=== PATIENT | male | born 1990 | race Caucasian/White ===

== ENCOUNTER 2022-11-09 16:05 | Emergency (ER) | payer MEDICAID, SELFPAY ==
[2022-11-09 16:10] VITALS: BP 126/89; PULSE 99; RESP 18; TEMP 36.6; O2SAT 99; BMI 38.0
--- NOTE | 2022-11-09 16:36 | CRLHL7_ITS ---
For Patients: As a result of the Century Cures Act, medical imaging exams and procedure reports are released immediately into your electronic medical record. You may view this report before your referring provider. If you have questions, please contact your health care provider. INDICATION: Right upper quadrant abdomen pain. TECHNIQUE: Ultrasound abdomen limited. Sonographic images of the right upper quadrant were obtained using rhoades-scale and color Doppler images. COMPARISON: None. FINDINGS: Liver: Normal in size and echotexture. No intrahepatic biliary dilatation. Gallbladder: Cholelithiasis in an otherwise normal gallbladder pre normal wall thickness. No pericholecystic fluid. Common bile duct: Four mm. Pancreas: Unremarkable where imaged. Right kidney: Normal in size. Normal echotexture and cortex. No shadowing stones, or hydronephrosis. Vasculature: Proximal abdominal aorta and IVC are unremarkable. IMPRESSION: Cholelithiasis in an otherwise normal gallbladder. Dictated by Domenic Dubose MD @ 11/09/2022 6:15:36 PM (Electronically Signed)
--- NOTE | 2022-11-09 16:40 | ED_ITS ---
HPI - Abdominal Pain General Time Seen by Provider: 16:40 Date Seen: 11/09/22 Chief Complaint: Abdominal Pain Stated Complaint: Gallstone Time Seen by Provider: 11/09/22 16:35 Source: patient Mode of arrival: ambulatory Limitations: no limitations History of Present Illness HPI narrative: Patient is a 32-year-old male with no pertinent medical problems [facility] for concern for cholelithiasis. Patient states 2 days ago he was on a cruise when after he ate a spicy in fatty meal he developed severe right upper quadrant abdominal pain that radiated across his abdomen. Patient went to see the on board provider and he states they did an ultrasound which showed concerns for cholelithiasis. He states he was told to come to the emergency department when he finished a cruise to get a CT scan to better evaluate the gallbladder. Patient states since then the pain has been improving but he still can feel it. He is only being small amounts of non spicy non fatty foods but states particular plenty of fluids without issue. Does state he has had somewhat similar symptoms 3 or 4 months ago but only last for 2 hours then went away. He has no other previous history of abdominal issues. No previous abdominal surgeries. Denies nausea, vomiting, lightheadedness, dizziness, diarrhea, constipation, dysuria. Related Data Home Medications Medication Instructions Recorded Confirmed amlodipine 10 mg tablet 10 mg PO DAILY 11/09/22 11/09/22 dextroamphetamine-amphetamine 10 1 tab PO DAILY 11/09/22 11/09/22 mg tablet dextroamphetamine-amphetamine ER 1 cap PO DAILY 11/09/22 11/09/22 30 mg 24hr capsule,extend release (Adderall XR) Allergies Allergy/AdvReac Type Severity Reaction Status Date / Time bee pollen Allergy Mild Localized Verified 11/09/22 16:19 Swelling Review of Systems Status of ROS Reports: 10 or more systems reviewed and unremarkable except as noted in History and below PFSH PFSH Social History Smoking Status: Former smoker Do you use any of these nicotine containing products: None Second hand tobacco smoke exposure: No How often do you have a drink containing alcohol: never AUDIT-C Alcohol total score: 0 Non-prescribed substance use: denies use service: No Exam Narrative: Exam Narrative: Const: Well-nourished, Well-developed, in mild distress Eyes: PERRL, no conjunctival injection, and symmetrical lids ENMT: Atraumatic external nose and ears. Moist mucous membranes. Neck: Symmetric, trachea midline, No thyromegaly. CVS: RRR, No murmurs or gallops. Peripheral pulses 2+ and equal in all extremities RESP: Unlabored respiratory effort. Clear to auscultation bilaterally. GI: Nontender/Nondistended, No rebound or guarding. MSK:Extremities w/o deformity, Normal Active ROM Skin: Warm, Dry. No rashes or lesions. Neuro: Normal Muscle tone, No focal neurological deficits. Psych: Awake, Alert, & Oriented x3. Appropriate mood and affect. Const: Vital Signs, click to edit/add: Vital Signs - 24 hr 11/09/22 16:10 11/09/22 19:05 11/09/22 19:06 Temperature 97.8 F 98.1 F 98.1 F Pulse Rate [Pulse Oximeter] 99 66 66 Respiratory Rate 18 18 18 Blood Pressure [Ri ght Upper Arm] 126/89 129/84 129/84 Pulse Oximetry 99 98 Oxygen Delivery Me thod Room Air Room Air Course Vital Signs Vital signs: Initial Vital Signs Temperature 97.8 F 11/09/22 16:10 Temperature Source Temporal Artery Scan 11/09/22 16:10 Pulse Rate 99 11/09/22 16:10 Respiratory Rate 18 11/09/22 16:10 Blood Pressure 126/89 11/09/22 16:10 Blood Pressure Mean 101 11/09/22 16:10 Blood Pressure Position Sitting 11/09/22 16:10 Pulse Oximetry 99 11/09/22 16:10 Oxygen Delivery Method Room Air 11/09/22 16:10 Vital Signs Temperature 97.8 F 11/09/22 16:10 Pulse Rate 99 11/09/22 16:10 Respiratory Rate 18 11/09/22 16:10 Blood Pressure 126/89 11/09/22 16:10 Pulse Oximetry 99 11/09/22 16:10 Oxygen Delivery Method Room Air 11/09/22 16:10 Temperature 98.1 F 11/09/22 19:06 Pulse Rate 66 11/09/22 19:06 Respiratory Rate 18 11/09/22 19:06 Blood Pressure 129/84 11/09/22 19:06 Pulse Oximetry 98 11/09/22 19:06 Oxygen Delivery Method Room Air 11/09/22 19:06 MDM - Abdominal Pain MDM Narrative Medical decision making narrative: Patient is a 32 year male presented to [place] for abdominal pain. Pain started 2 days ago while he a spicy and fatty be on a cruise ship. He had a point of care ultrasound done by the envelope provider was told he has gallstones. He was informed follow-up with a possible CT scan in the emergency department when he arrived back from his cruise. He was given antibiotics the past 2 days but is not currently taking any further antibiotics. The pain has improved he states he has only been eating small amounts of non-fatty in non spicy foods because of the possible gallbladder issue. No previous abdominal surgeries. CBC, CMP, lipase were all ordered on this patient he is not having any dysuria and up leaving urinalysis is necessary. Go to right upper quadrant ultrasound. Since the symptoms are likely gallbladder related adenopathy was necessary for him to get a CT scan at this time. Patient is having returned showing no concerning abnormalities. His potassium is only mildly low at 3.4 but his liver enzymes are within normal limits. Unlikely to be primary liver cause of his symptoms. Lipase is within normal limits and unlikely to be pancreatitis. Kidney function within normal limits. No clear signs of infection at this time. Ultrasound returns showing the previously seen cholelithiasis but no signs of cholecystitis or other gallbladder or liver disease. He is otherwise doing well at this time. Will discharge him home with information to follow up with surgery. Informed to stay away from fatty and spicy foods. He is agreeable to this plan. Lab Data Labs: Lab Results 11/09/22 Range/Units 17:02 WBC 8.52 (4.50-11.00) K/uL RBC 5.42 (4.30-5.90) m/uL Hgb 16.0 (13.5-17.5) gm/dL Hct 47.5 (37.0-53.0) % MCV 88 (80-100) fL MCH 30 (26-34) pg MCHC 34 (32-36) gm/dL RDW Coeff of Chandler 12.6 (11.5-15.5) % Plt Count 233 (140-440) K/uL Neut % (Auto) 63.6 (42.0-72.0) % Lymph % (Auto) 22.5 (20-44) % [place] % (Auto) 9.5 (0.0-11.0) % Eos % (Auto) 3.2 (0.0-7.0) % Baso % (Auto) 0.5 (0.0-3.0) % Neut # (Auto) 5.42 (1.7-7.0) K/uL Lymph # (Auto) 1.92 (0.90-2.90) K/uL [place] # (Auto) 0.80 (0.00-0.90) K/UL Eos # (Auto) 0.27 (0.00-0.50) K/uL Baso # (Auto) 0.04 (0.00-0.30) K/uL Abs Immat Gran (auto) 0.06 (0.00-0.30) K/uL Imm/Tot Granulo (auto) 0.7 % Sodium 137 (135-149) mmol/L Potassium 3.4 L (3.6-5.1) mmol/L Chloride 101 (96-114) mmol/L Carbon Dioxide 27 (20-32) mmol/L Anion Gap 9 (7-15) mEq/L BUN 11 (5-24) mg/dL Creatinine 0.8 (0.5-1.5) mg/dL Estimated Creat Clear 127.06 Estimated GFR 120 ml/min Glucose 94 (60-115) mg/dL Total Bilirubin 1.0 (0.1-1.5) mg/dL AST 26 (12-35) U/L ALT 41 (4-50) U/L Alkaline Phosphatase 53 (40-150) U/L Total Protein 8.0 (6.0-8.3) g/dL Albumin 4.7 (3.3-5.0) g/dL Lipase 87 (23-300) U/L Discharge Plan Discharge Clinical Impression: Cholelithiasis Qualifiers: Cholelithiasis location: gallbladder Cholecystitis presence: without cholecystitis Biliary obstruction: without biliary obstruction Qualified Code(s): K80.20 - Calculus of gallbladder without cholecystitis without ob struction Patient Disposition: Home, Self-Care Condition: Stable Instructions: Gallstones (ED) Additional Instructions: Take ibuprofen for pain. Stay away from fatty and spicy foods. Those type of food will make your symptoms worse. Follow-up with 1 of the available general surgeon of the [facility]. Their contact information has been provided. Return for new or worsening symptoms. Prescriptions: No Action dextroamphetamine-amphetamine 10 mg tablet 1 tab PO DAILY amlodipine 10 mg tablet 10 mg PO DAILY dextroamphetamine-amphetamine [Adderall XR] 30 mg capsule,extended release 24hr 1 cap PO DAILY Follow Up/Referrals: Provider,Not a Local [Referring] - Stand Alone Forms: [employer] Info Instructions
[2022-11-09 17:09] LABS: Basophils Absolute Auto 0.04 K/uL (0.00-0.30); Basophils Percent Auto 0.5 % (0.0-3.0); Eosinophils Absolute Auto 0.27 K/uL (0.00-0.50); Eosinophils Percent Auto 3.2 % (0.0-7.0); Hematocrit 47.5 % (37.0-53.0); Immature Granulocytes Abs Auto 0.06 K/uL (0.00-0.30); Immature Granulocytes Pct Auto 0.7 %; Lymphocytes Absolute Auto 1.92 K/uL (0.90-2.90); Lymphocytes Percent Auto 22.5 % (20-44); Mean Corpuscular HGB Conc 34 gm/dL (32-36); Mean Corpuscular Hemoglobin 30 pg (26-34); Mean Corpuscular Volume 88 fL (80-100); Monocytes Percent Auto 9.5 % (0.0-11.0); Neutrophils Absolute Auto 5.42 K/uL (1.7-7.0); Neutrophils Percent Auto 63.6 % (42.0-72.0); Platelet Count* 233 K/uL (140-440); RDW Coefficient of Variation % 12.6 % (11.5-15.5); Red Blood Count 5.42 m/uL (4.30-5.90); White Blood Count* 8.52 K/uL (4.50-11.00)
[2022-11-09 17:21] LABS: Albumin* 4.7 g/dL (3.3-5.0)
[2022-11-09 17:22] LABS: Chloride* 101 mmol/L (96-114); Potassium* 3.4 mmol/L (3.6-5.1); Sodium* 137 mmol/L (135-149)
[2022-11-09 17:24] LABS: Anion Gap 9 mEq/L (7-15); Aspartate Amino Transferase* 26 U/L (12-35); Carbon Dioxide* 27 mmol/L (20-32); Creatinine* 0.8 mg/dL (0.5-1.5); Est. Creatinine Clearance* 127.06; Estimated Glomerular Filt Rate 120 ml/min
[2022-11-09 17:25] LABS: Alanine Aminotransferase* 41 U/L (4-50); Alkaline Phosphatase* 53 U/L (40-150); Blood Urea Nitrogen* 11 mg/dL (5-24); Glucose* 94 mg/dL (60-115); Lipase* 87 U/L (23-300)
[2022-11-09 17:27] LABS: Slide Review Reflex No
[2022-11-09 19:05] VITALS: BP 129/84; PULSE 66; RESP 18; TEMP 36.7
[2022-11-09 19:06] VITALS: BP 129/84; PULSE 66; RESP 18; TEMP 36.7; O2SAT 98
[2022-11-12 20:07] LABS: Calcium* 9.3 mg/dL (8.4-10.6)
== END 2022-11-09 19:07 | disposition home or self-care (01) ==
PROVIDERS: Emergency Provider Student in an Organized Health Care Education/Training Program; PCP Family Medicine
DX: K80.20 Calculus of gallbladder without cholecystitis without obstruction (principal)
CPT/HCPCS: 36415; 76705; 80053; 83690; 85025; 99283; 99284

== ENCOUNTER 2022-11-30 07:45 | Day surgery (SDC) | payer MEDICAID, SELFPAY ==
[2022-11-30] VITALS (12 sets, daily range): BP systolic 106–137; BP diastolic 68–96; PULSE 68–94; RESP 14–20; TEMP 36.2–36.9; O2SAT 97–100; BMI 37.4
[2022-11-30] MEDS: SODIUM CHLORIDE 0.9 % (FLUSH) 10 ML SYRINGE IVF (08:30)
[2022-11-30] MEDS: LACTATED RINGERS 1000 ML 1,000 ML 100 ML IV ×2 (08:30→09:34)
--- NOTE | 2022-11-30 09:09 | PM.GSPRC ---
Operative Note Pre-op diagnosis: 1. Biliary colic. 2. Possible chronic cholecystitis. Post-op diagnosis: 1. Acute on chronic cholecystitis. Type of Procedure: 1. Laparoscopic cholecystectomy. Indications: 32-year-old male was seen in clinic for a evaluation of recurrent episodes of right upper quadrant pain for the past 3 months. Patient had 2 of those episodes that started after eating spicy and greasy food. The pain lasted for about 2 hours and spontaneously resolved. Patient was recently on vacation on a cruise and after eating something heavy and greasy, he developed pain in epigastrium and right upper quadrant. The pain was severe and lasted for about 3-4 hours. He was seen by a medical doctor on the ship and received Morphine to control his pain. He was treated with Zosyn and Flagyl. An ultrasound on the ship showed cholelithiasis. When patient arrived to [place], he went to the emergency room at the [facility]. He was found to have normal WBC and normal liver function tests. His gallbladder ultrasound showed cholelithiasis with no pericholecystic fluid. His common bile duct was 4 mm. Since his last episode of intense pain, patient continued to have background discomfort In the right upper quadrant that was constant. He was avoiding greasy and spicy food. On clinical exam patient had discomfort to palpation in the right upper quadrant with negative Pedro sign. Given patient's clinical history and his physical exam, biliary colic and possible chronic cholecystitis was suspected. Laparoscopic cholecystectomy was recommended. The procedure was discussed in detail. The risks associated procedure including infection, bleeding, injury to intra-abdominal organs, and the need for additional procedures were all discussed with the patient, and he agreed to proceed. Procedure Description: After discussing the risks and benefits of the procedure, the patient signed informed consent.? The operative site was marked and the patient was brought to the operating room and placed on the operating table in supine position.? Care was taken to pad the patient's pressure points.?? The patient was then intubated by anesthesia.?? The operative site was then prepped and draped in the usual sterile fashion.? A time-out was then performed. A 5-mm laparoscopy port was placed in the left upper quadrant guided by a 5-mm laparoscope placed into a translucent trochar.~ Passage through the layers of the abdominal wall was visualized with the laparoscope.~ A pneumoperitoneum was established. A 0-degree 5-mm laparoscope was advanced into the abdomen. The abdomen was briefly surveyed, and no adhesions were noted. A 10-mm port were placed infraumbilically and two more 5 mm ports were placed on the right under direct visualization by laparoscope. The camera was then changed to 10 mm 30-degree scope and placed into the abdomen through the 10 mm port. The left upper quadrant port entrance was examined and no injury to intra-abdominal organs was identified. The gallbladder was identified, and was found to be inflamed. It was difficult to grasp the gallbladder wall. Omental adhesions to the anterior gallbladder fundus were taken down with hook cautery. The fundus grasped and retracted cephalad. Initially, I was not able to see the infundibulum. Omentum overlying the infundibulum was dissected bluntly and with hook cautery. Moderate amount of acute and chronic inflammation was noted in the gallbladder wall. The inflammatory rind was covering the infundibulum. When the infundibulum was identified, it was grasped and retracted laterally, exposing the peritoneum overlying the triangle of Calot. This was then divided and exposed in a blunt fashion and with hook cautery. Common bile duct was not identified but care was taken not to injure it. The cystic duct was clearly identified and bluntly dissected circumferentially. Cystic artery was identified and tissues around it were dissected off. The node of Calot was overlying the cystic artery and the artery was branching on the gallbladder wall. The cystic artery was clearly going into the gallbladder. The cystic artery was then clipped with three 5 mm clips on the patient's side and single clipped on the specimen side and divided with scissors. The cystic duct was then further dissected circumferentially with hook cautery and bluntly. It was clearly going into the gallbladder. It was then doubly ligated with surgical clips on the patient's side and singly clipped on the gallbladder side and divided. The gallbladder was dissected off the liver. This dissection was difficult because of chronic inflammation of the gallbladder wall and difficulty visualizing the plane between the gallbladder and the liver. The gallbladder wall was entered in multiple spots and cloudy rhoades appearing bile spilled into the abdominal cavity. This was suctioned out. The gallbladder was dissected from the liver bed in retrograde fashion using hookcautery. The gallbladder was placed into an Endo-Catch bag and removed through the infraumbilical incision. Surgical site was examined for bleeding. Bleeding from the liver bed was controlled with hook cautery and Evelina. The fascia of the infraumbilical incision was then closed with 0-0 vicryl using Farshad Frank needle under direct visualization. Pneumoperitoneum was completely reduced after viewing removal of the trocars under direct vision. The skin was then closed with 4-0 monocryl and steristrips were applied. Instrument, sponge, and needle counts were correct at closure and at the conclusion of the case. The patient was transferred to PACU in stable condition. Findings: acute and chronic inflammation. Anesthesia: GETA Surgeon: Kevin Valdez MD Estimated blood loss (mL): 30 Specimen: Gallbladder Condition: stable Disposition: PACU Date of procedure: 11/30/22
[2022-11-30] MEDS: BUPIVACAINE 0.25% 30 ML 10 ML INJECTION (09:19)
[2022-11-30] MEDS: CEFAZOLIN 2 GM INJ IVP (09:30)
--- NOTE | 2022-11-30 10:22 | SUR.OPER ---
PATIENT QUESTIONS ANSWERED SATISFACTORILY PREOPERATIVELY. PATIENT BROUGHT TO OR #4 PER CART. Patient positioned supine on OR #4 bed. The perioperative team supported arms bilaterally on arm boards. Final approval of positioning by surgeon.
[2022-11-30] MEDS: fentaNYL 100 MCG/2 ML inj 50 MCG IVP ×2 (12:03→12:10)
--- NOTE | 2022-11-30 12:13 | W.ANESCHARGE ---
Anesthesia Charges Start Date/Time Anesthesia Start Date: 11/30/22 Anesthesia Start Time: 09:19 Stop Date/Time Anesthesia Stop Date: 11/30/22 Anesthesia Stop Time: 11:58
--- NOTE | 2022-12-11 08:50 | W.ANESCHARGE ---
Anesthesia Charges Start Date/Time Anesthesia Start Date: 11/30/22 Anesthesia Start Time: 09:19 Stop Date/Time Anesthesia Stop Date: 11/30/22 Anesthesia Stop Time: 11:58
== END 2022-11-30 13:37 | disposition home or self-care (01) ==
PROVIDERS: PCP Family Medicine; Visit Provider Surgery
PROC: 0FT44ZZ Resection of Gallbladder, Percutaneous Endoscopic Approach (ICD-10-PCS; CPT 47562; principal; 2022-11-30 09:30)
DX: K80.12 Calculus of gallbladder with acute and chronic cholecystitis without obstruction (principal)
CPT/HCPCS: 47562; 790; 88304; J0330; J0665; J0690; J1100; J1170; J1885; J2405; J2704; J3010; J3490; J7120